=== PATIENT | male | born 1945 | race Caucasian/White ===

== ENCOUNTER → 2016-07-31 | Outpatient (CLI) | payer OTHER, MEDICARE ==
[~2016-07-31] MED LIST: GADOBUTROL 10 ML VIAL IVP ONE
== END ==
LOC: FIMAGING 17:05
PROVIDERS: ATTEND Internal Medicine
DX: R41.82 Altered mental status, unspecified (principal); R47.02 Dysphasia; I48.91 Unspecified atrial fibrillation
CPT/HCPCS: 70553; A9585

== ENCOUNTER → 2016-08-01 | Outpatient (CLI) | payer OTHER, MEDICARE | LOC: BMCIMAGING 15:46 | PROVIDERS: ATTEND Internal Medicine Cardiovascular Disease | DX: I65.23 Occlusion and stenosis of bilateral carotid arteries (principal); Z86.73 Personal history of transient ischemic attack (TIA), and cerebral infarction without residual deficits ==

== ENCOUNTER 2016-08-02 06:31 | Day surgery (SDC) | payer OTHER, MEDICARE ==
[2016-08-02] MEDS ORDERED: BENZOCAINE UNIT DOSE SPRAY HURRICAINE MM ONE (06:38)
[2016-08-02] MEDS ORDERED: MIDAZOLAM 2 MG/2 ML VIAL IVP ONE (06:38)
[2016-08-02] MEDS ORDERED: NS 1,000 ML IV ONE (06:38)
[2016-08-02] MEDS ORDERED: fentaNYL 100 MCG/2 ML INJ IVP ONE (06:38)
[2016-08-02] MEDS ORDERED: ATROPINE SULFATE 1 MG/10 ML SYR ONE (07:19)
[2016-08-02] MEDS ORDERED: PROPOFOL 200 MG/20 ML VIAL ONE ×2 (08:18→08:38)
[2016-08-02] MEDS ORDERED: LIDOCAINE 2% 100 MG/5 ML SYR ONE (08:18)
--- NOTE | 2016-08-02 10:19 | ECHO ---
[id number] + + [address] : : [facility] [address] : : [phone] + + Adult Echocardiographic Report + + :Name: AYESHA ROBERT Study Date: 08/02/2016 08:13 AM : : Hospital Admission Number: [id number] : :: 1945 Gender: Male : :Age: 70 yrs Race: WH : + + Left Ventricle Left ventricular systolic function is normal. Right Ventricle The right ventricular systolic function is normal. Atria No left atrial mass or thrombus visualized. The right atrium is moderately dilated. The interatrial septum is intact with no evidence for an atrial septal defect. Injection of contrast documented no interatrial shunt. Mitral Valve The mitral valve is normal in structure and function. There is no evidence of mitral valve prolapse. There is trace mitral regurgitation. Tricuspid Valve The tricuspid valve is normal in structure and function. There is trace tricuspid regurgitation. Aortic Valve There is no aortic insufficiency. The prosthetic aortic valve is well- seated. The prosthetic aortic valve appears to open well. There is no thrombus on the prosthetic aortic valve. There are no vegetations on this prosthetic aortic valve. Pulmonic Valve The pulmonic valve is normal in structure and function. There is no pulmonic valvular regurgitation. Great Vessels Mild atherosclerotic plaque(s) in the descending aorta. Pericardium/Pleural The pericardium appears normal. Conclusion Left ventricular systolic function is normal. No left atrial mass or thrombus visualized. Injection of contrast documented no interatrial shunt. There is trace mitral regurgitation. There is trace tricuspid regurgitation. The prosthetic aortic valve is well-seated. The prosthetic aortic valve appears to open well. There is no thrombus on the prosthetic aortic valve. There are no vegetations on this prosthetic aortic valve. Final Reading Physician: Ab Schulte electronically signed on 08/02/2016 10:18 AM Ordering Physician: Ab Schulte
--- NOTE | 2016-08-02 10:51 | CPR ---
[f rep st] NONINVASIVE CARDIAC PROCEDURE REPORT DATE OF PROCEDURE: 08/02/2016 PROCEDURE PERFORMED: Transesophageal echocardiogram. 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 PROCEDURE: After informed consent was obtained, the patient was brought to the [facility]. With the assi stance of Anesthesia, patient was sedated with propofol. Once appropriate level of sedation was ach ieved, KYLIE probe was passed via a bite block without complication. KYLIE probe was used to take image s of all cardiac structures. The porcine aortic valve was well seated with no evidence of thrombus or vegetation. There was no evidence of thrombus within the left atrium. Left atrial appendage was not visualized, most likely oversewn during surgery. We will review his surgical report. Please see complete echo report for full details. There is no cardiac source of embolic event for his recent frontal lobe CVA. CONCLUSION: 1. Normal bioprosthetic valve function. 2. Normal left ventricular systolic function. No valvular source of embolic phenomenon. PLAN: 1. Patient will be discharged home in approximately 1 hour. 2. Continue outpatient medications including his anticoagulation. 3. We will contact his primary care physician, Dr. Teague, as well as Dr. Hillman, neurologist who is s eeing him this afternoon. /[id number]/MODL
== END 2016-08-02 11:40 | disposition home or self-care (01) ==
LOC: FCATH 06:31
PROVIDERS: ATTEND Internal Medicine Cardiovascular Disease
PROC: B246ZZ4 Ultrasonography of Right and Left Heart, Transesophageal (ICD-10-PCS; principal; 2016-08-02)
DX: I48.0 Paroxysmal atrial fibrillation (principal); Z95.2 Presence of prosthetic heart valve; I25.10 Atherosclerotic heart disease of native coronary artery without angina pectoris; G47.33 Obstructive sleep apnea (adult) (pediatric); Z86.73 Personal history of transient ischemic attack (TIA), and cerebral infarction without residual deficits
CPT/HCPCS: J0461; J2001; J2704

== ENCOUNTER 2016-08-02 15:26 | Inpatient (IN) | payer OTHER, MEDICARE ==
[2016-08-02 16:05] LABS: % IMMATURE GRANULYOCYTES 0.4 % (0.0-1.1); ABSOLUTE IMMATURE GRANULOCYTES 0.03 10^3/uL (0.00-0.10); ADD DIFF? NO; ADD MORPH? NO; ADD SCAN? NO; ATYPICAL LYMPHOCYTE FLAG 10 (0-99); FRAGMENT RBC FLAG 0 (0-99); LEFT SHIFT FLG 20 (0-99); LIPEMIA HEMOLYSIS FLAG 90 (0-99); MEAN CELL HEMOGLOBIN 33.4 pg (27.9-34.1); MEAN CELL HEMOGLOBIN CONCENTR. 34.1 g/dL (32.4-36.7); MEAN CELL VOLUME 97.9 fL (81.5-99.8); MEAN PLATELET VOLUME 10.7 fL (8.7-11.7); PLATELET CLUMPS FLAG 0 (0-99); PLATELET COUNT 120 10^3/uL (150-400); RED BLOOD CELL COUNT 4.19 10^6/uL (4.40-6.38); RED CELL DISTRIBUTION WIDTH 13.2 % (11.5-15.2)
--- NOTE | 2016-08-02 16:05 | EDPHY ---
HPI/HX/ROS/PE/MDM Narrative: CHIEF COMPLAINT: Behavioral changes HPI: The patient is a 70 y/o male arriving with his at the referral of his neurologist for changes in his behavior onset one month ago and worsening over the last week. He has has an extensive cardiac history and previous TIA. His says about one month ago he began to "have identity issues" and developed difficulty continuing a train of thought or telling a story. She describes an accompanying change in his personality and increased paranoia. She says this worsened acutely over the last week so his neurologist, Dr. Hillman, ordered an MRI on 07/31/16, 2 days ago. The MRI showed a large subacute or old right frontal infarct that is likely related to his current behavior. He had a KYLIE this morning that was unremarkable. Dr. Hillman referred him to the ED for admission and stabilization of his behavior. The patient and his confirm this plan. REVIEW OF SYSTEMS: Aside from elements discussed in the HPI, a comprehensive 10-point review of systems was reviewed and is negative. PMH: Coronary and cerebral artery disease, dilated cardiomyopathy, atrial fibrillation, dyslipidemia, anxiety, TIA in 2002, reactive airways disease. PSH: Ablation x3, bioprosthetic aortic valve replacement Prior medical records reviewed including cardiac admission 09/28/15, brain MRI , KYLIE 08/02/16. SOCIAL HISTORY: at bedside. PCP: Dr. Teague. Neurologist: Dr. Hillman. PHYSICAL EXAM: General:Patient is alert, in no acute distress. ENT:Eyes are normal to inspection. ENT inspection normal. Neck: Normal inspection. Full range of motion. Respiratory:No respiratory distress. Breath sounds normal bilaterally. Cardiovascular: Regular rate and rhythm. Strong peripheral pulses. Normal cap refill. Abdomen:The abdomen is nontender to palpation. There are no peritoneal signs. Back: Normal to inspection. No tenderness to palpation. Skin: Normal color. No rash. Warm and dry. Extremities: Normal appearance. Full range of motion. Neuro: Oriented x3. Normal motor function. Normal sensory function. ED Course: IV established. Labs drawn including CBC, CHEM, troponin, PTPTT, LFT. Urine tox ordered. Patient placed on cardiac cath lab radiology technologist. The 12 lead EKG was interpreted by myself. Sinus rhythm. See hard copy and/or "tracemaster" electronic copy for interpretation. 1640: Troponin elevated at 0.078. 1652: Spoke with Dr. Luque, hospitalist. He accepts admission. MDM: This patient presents with altered mental status and paranoid behavior in the setting of recent frontal lobe CVA, which seems like a reasonable cause of this type of behavior. On exam, patient clearly has difficulty having a logical conversation and I do not think he actually has capacity to make his own medical decisions at this point. The patient is comfortable with admission to the hospital for further observation, medical stabilization and workup. The etiology of his mildly elevated troponin is unclear, but given negative ECG, lack of chest pain and negative KYLIE this morning, I see no signs of ACS. - Data Points Laboratory Results: Laboratory Results 08/02/16 15:57 08/02/16 15:57 08/02/16 08/02/16 08/02/16 16:35 15:57 15:57 WBC RBC Hgb Hct MCV MCH MCHC RDW Plt Count MPV Neut % (Auto) Lymph % (Auto) [place] % (Auto) Eos % (Auto) Baso % (Auto) Nucleat RBC Rel Count Absolute Neuts (auto) Absolute Lymphs (auto) Absolute Monos (auto) Absolute Eos (auto) Absolute Basos (auto) Absolute Nucleated RBC Immature Gran % Immature Gran # PT 17.0 SEC H SEC (12.0-15.0) INR 1.39 H (0.83-1.16) APTT 38.9 SEC H SEC (23.0-38.0) Sodium 136 mEq/L mEq/L (134-144) Potassium 4.5 mEq/L mEq/L (3.5-5.2) Chloride 103 mEq/L mEq/L (97-110) Carbon Dioxide 23 mEq/l D mEq/l (22-31) Anion Gap 10 mEq/L mEq/L (8-16) BUN 20 mg/dL mg/dL (7-23) Creatinine 0.9 mg/dL mg/dL (0.7-1.3) Estimated GFR > 60 Glucose 97 mg/dL mg/dL (70-100) Calcium 9.6 mg/dL mg/dL (8.5-10.4) Total Bilirubin 0.6 mg/dL mg/dL (0.1-1.4) Conjugated Bilirubin 0.3 mg/dL mg/dL (0.0-0.5) Unconjugated Bilirubin 0.3 mg/dL mg/dL (0.0-1.1) AST 52 IU/L IU/L (17-59) ALT 50 IU/L IU/L (21-72) Alkaline Phosphatase 71 IU/L IU/L (38-126) Troponin I 0.078 ng/mL H ng/mL (0-0.034) Total Protein 7.3 g/dL g/dL (6.3-8.2) Albumin 4.4 g/dL g/dL (3.5-5.0) Urine Opiates Screen NEGATIVE (NEGATIVE) Urine Barbiturates NEGATIVE (NEGATIVE) Ur Phencyclidine Scrn NEGATIVE (NEGATIVE) Ur Amphetamine Screen NEGATIVE (NEGATIVE) U Benzodiazepines Scrn NEGATIVE (NEGATIVE) Urine Cocaine Screen NEGATIVE (NEGATIVE) U Marijuana (THC) Screen NEGATIVE (NEGATIVE) 08/02/16 15:57 WBC 6.74 10^3/uL 10^3/uL (3.80-9.50) RBC 4.19 10^6/uL L 10^6/uL (4.40-6.38) Hgb 14.0 g/dL g/dL (13.7-17.5) Hct 41.0 % % (40.0-51.0) MCV 97.9 fL fL (81.5-99.8) MCH 33.4 pg pg (27.9-34.1) MCHC 34.1 g/dL g/dL (32.4-36.7) RDW 13.2 % % (11.5-15.2) Plt Count 120 10^3/uL L 10^3/uL (150-400) MPV 10.7 fL fL (8.7-11.7) Neut % (Auto) 59.7 % % (39.3-74.2) Lymph % (Auto) 22.4 % % (15.0-45.0) [place] % (Auto) 12.2 % % (4.5-13.0) Eos % (Auto) 4.9 % % (0.6-7.6) Baso % (Auto) 0.4 % % (0.3-1.7) Nucleat RBC Rel Count 0.0 % % (0.0-0.2) Absolute Neuts (auto) 4.02 10^3/uL 10^3/uL (1.70-6.50) Absolute Lymphs (auto) 1.51 10^3/uL 10^3/uL (1.00-3.00) Absolute Monos (auto) 0.82 10^3/uL H 10^3/uL (0.30-0.80) Absolute Eos (auto) 0.33 10^3/uL 10^3/uL (0.03-0.40) Absolute Basos (auto) 0.03 10^3/uL 10^3/uL (0.02-0.10) Absolute Nucleated RBC 0.00 10^3/uL 10^3/uL (0-0.01) Immature Gran % 0.4 % % (0.0-1.1) Immature Gran # 0.03 10^3/uL 10^3/uL (0.00-0.10) PT INR APTT Sodium Potassium Chloride Carbon Dioxide Anion Gap BUN Creatinine Estimated GFR Glucose Calcium Total Bilirubin Conjugated Bilirubin Unconjugated Bilirubin AST ALT Alkaline Phosphatase Troponin I Total Protein Albumin Urine Opiates Screen Urine Barbiturates Ur Phencyclidine Scrn Ur Amphetamine Screen U Benzodiazepines Scrn Urine Cocaine Screen U Marijuana (THC) Screen General Time Seen by Provider: 08/02/16 15:29 Initial Vital Signs: Initial Vital Signs Temperature (C) 36.4 C 08/02/16 15:30 Heart Rate 67 08/02/16 15:30 Respiratory Rate 17 08/02/16 15:30 Blood Pressure 122/84 H 08/02/16 15:30 O2 Sat (%) 96 08/02/16 15:30 O2 Delivery Mode Room Air Allergies/Adverse Reactions: No Known Allergies Allergy (Verified 08/02/16 15:28) Home Medications: Medication Instructions Recorded Albuterol [Proventil Inhaler HFA 1 puffs IH DAILY PRN 08/02/16 (*)] Atorvastatin Calcium [Lipitor 20 20 mg PO HS 08/02/16 mg (*)] Dabigatran Etexilate Mesyl 150 mg PO BID 08/02/16 [Pradaxa 150 MG (*)] Herbals/Supplements -Info Only 1 ea PO DAILY 08/02/16 Metoprolol Tartrate [Lopressor 25 12.5 mg PO BID 08/02/16 mg (*)] Multivitamins [Multivitamin (*)] 1 each PO DAILY 08/02/16 [place]-3 Fatty Acids [Fish Oil 1000 2,000 mg PO DAILY 08/02/16 mg (*)] PARoxetine HCL [Paxil 10mg (*)] 10 mg PO HS 08/02/16 Departure - Departure Disposition: [facility] Inpatient Acute Clinical Impression: Change in behavior, Elevated troponin Condition: Fair Report Scribed for: Luis Carrillo Report Scribed by: Belia Santiago Date of Report: 08/02/16 Time of Report: 15:57 Physician Review and Approval Statement: Portions of this note were transcribed by an ED scribe. I personally performed the history, physical exam, and medical decision making; and confirm the accuracy of the information in the transcribed note.
--- NOTE | 2016-08-02 16:06 | CPEKG ---
Heart Rate: 62 RR Interval: 968 P-R Interval: 180 QRSD Interval: 90 QT Interval: 400 QTC Interval: 407 P [place]: 71 QRS [place]: -62 T Wave [place]: 218 EKG Severity - ABNORMAL ECG - EKG Impression: SINUS ARRHYTHMIA, RATE 51-70 EKG Impression: LEFT ANTERIOR FASCICULAR BLOCK EKG Impression: NONSPECIFIC T ABNORMALITIES, LATERAL LEADS EKG Impression: LATERAL ST/T WAVE CHANGES ARE NEW IN COMPARISON TO PRIOR ECG FROM 28-SEP-15 Electronically Signed By: Joseph Cano 03-Aug-2016 18:05:15
[2016-08-02 16:17] LABS: INR 1.39 (0.83-1.16)
[2016-08-02 16:18] LABS: APTT 38.9 SEC (23.0-38.0)
[2016-08-02 16:28] LABS: ALANINE AMINOTRANSFERASE 50 IU/L (21-72); ALBUMIN 4.4 g/dL (3.5-5.0); ALKALINE PHOSPHATASE 71 IU/L (38-126); ANION GAP 10 mEq/L (8-16); ASPARTATE AMINOTRANSFERASE 52 IU/L (17-59); BILIRUBIN,TOTAL 0.6 mg/dL (0.1-1.4); BILIRUBIN-CONJUGATED 0.3 mg/dL (0.0-0.5); BILIRUBIN-UNCONJUGATED 0.3 mg/dL (0.0-1.1); CALCIUM 9.6 mg/dL (8.5-10.4); CARBON DIOXIDE 23 mEq/l (22-31); CHLORIDE 103 mEq/L (97-110); CREATININE 0.9 mg/dL (0.7-1.3); GLOMERULAR FILTRATION RATE > 60; GLUCOSE 97 mg/dL (70-100); POTASSIUM 4.5 mEq/L (3.5-5.2); SODIUM 136 mEq/L (134-144); TOTAL PROTEIN 7.3 g/dL (6.3-8.2)
[2016-08-02 16:37] LABS: TROPONIN I 0.078 ng/mL (0-0.034)
[2016-08-02] MEDS ORDERED: ZOLPIDEM TARTRATE 5 MG TAB PO PRN (18:58)
[2016-08-02] MEDS ORDERED: ACETAMINOPHEN 325 MG TAB PO PRN (18:58)
[2016-08-02] MEDS ORDERED: ONDANSETRON 4 MG/2 ML VIAL IVP PRN (18:58)
[2016-08-02] MEDS ORDERED: ALBUTEROL 60 PUFFS/8 GM MDI IH PRN (19:03)
--- NOTE | 2016-08-02 20:07 | PDGENHP ---
History and Physical History and Physical: HISTORY AND PHYSICAL CC: Sent to the hospital from Dr. Hernandez office with change in personality, paranoia, and what appears to be recent frontal lobe stroke. HISTORY: This patient with a somewhat complicated medical history was apparently doing well until around a month ago when his started noticing some personality changes. She describes some paranoia, some difficulty in conversation where he would talk in a circular fashion and never get to the topic. She was finding it increasingly difficult to manage at home and she did not feel he was safe at home. This eventually led to the patient being evaluated by Dr. Teague who ordered an MRI of the brain. This was done on July 31 2 days ago and showed a right frontal lobe infarct that was subacute to old. The patient was assessed by Dr. Hillman. He then was referred to Dr. Schulte who did a trans esophageal echocardiogram earlier today with no evidence of thrombus and no evidence of malfunction or malposition of his bovine aortic valve. He was then referred by Dr. Hillman to the hospital for further evaluation and management. I am visiting with the patient in the emergency room. As I asked the patient why he was visiting his doctors or why he was transferred here, he does tell me that he is not entirely comfortable discussing everything with me, and he talked at great length about concerns he has about constrictions placed on him regarding discussions with former colleagues in work. He describes the situation as though there might be some type of legal difficulties and difficulty ago she agents. However he speaks of all this quite vaguely with no details at all and seems to be searching hard for ways to only give me a certain level of information. When I asked him if he felt like all of this was normal for the kind of situation he was in there he does not answer me directly. At 1 point in the conversation he did mention that in a very vague way that other people seemed concerned about his comments in these discussions. When I asked what his reactions to these issues were and whether he thought his reactions were normal or appropriate he did not answer that question but diverted conversation. Each time I had tried to stand him back to telling me about symptoms he voided talking about any symptoms. When I asked him why Dr. Teague will ordered an MRI he tells me that she wanted to compare it with a previous MRI that he had some years back when there was a TIA episode. When I asked him what symptoms he was having now that would make Dr. Teague when to make that comparison he again avoided that discussion and went back to talking about his difficulties with his former work colleagues. Finally after several efforts to get him to talk about any symptoms he has been having he did make a vague reference to some possible paranoia. When I asked him about any physical symptoms he denied having any physical symptoms including headache or neurologic symptoms. He denies any symptoms of heart failure or arrhythmia as well. ROS: A comprehensive 10 system review revealed no other significant findings PAST MEDICAL HISTORY: Aortic insufficiency leading to a bovine aortic valve replacement in 2014 Atrial fibrillation, rate controlled and on oral anticoagulant TIA Clean coronary arteries noted on angiography before his heart valve Dilated cardiomyopathy Hyperlipidemia Anxiety disorder Reactive airway disease FAMILY MEDICAL HISTORY: No strokes SOCIAL HISTORY: and lives with his who is here with him Retired No tobacco no significant alcohol MEDICATIONS: The patients list has been reconciled by our clinical pharmacist in the EMR. I have reviewed the list and ordered appropriate medicines. Of note he is on anticoagulation with oral Pradaxa, but is not on a platelet inhibitor. PHYSICAL EXAMINATION: Vital Signs: Normal blood pressure pulse respirations and temperature is Category Planner: sinus rhythm on monitor in the ER by my review Examination: General: alert, oriented, good mentation, relaxed; Neurologic: he appears a very intelligent man; I refer the reader to my discussion about my conversation with him in the history above in this note. There is clearly a degree of suspicion and paranoia any significant unwillingness or inability to stick to a topic of conversation when I trying to direct him. This is precisely what his is describing at home as well. Otherwise there is normal speech/language, normal financial director, no focal weakness, no tremor Skin: warm, dry, good color, no rash HEENT: normal Neck: no mass or jvd Resps: relaxed Lungs: clear breath sounds Heart: regular, no murmur Abdomen: soft, nondistended, nontender, +BS, no mass Upper Extremities: normal Lower Extremities: no edema, warm No Bleeding or bruising IV site: looks normal LABORATORY DATA: Urine drug screen all negative Metabolic panel normal Platelets slightly low on CBC otherwise unremarkable Indeterminate troponin 0.07 TRANSESOPHAGEAL ECHOCARDIOGRAM DONE EARLIER today, I reviewed Dr. salamanca also report: There is no evidence of intracardiac thrombus, under S eating or malfunction of his bovine heart valve, and he was in RADIOLOGY STUDIES: I reviewed the images from an outpatient MRI done earlier this week 2 days ago. This is a noncontrast study of the brain. My impressions the images; there is a right frontal lobe ischemic in infarct lesion that appears probably subacute. No evidence of trauma no evidence of mass 12 LEAD EKG DONE IN THE ER TODAY, my interpretation of the tracing in comparison to a 2015 EKG at time of heart surgery: Sinus rhythm. There is some diffuse Borderline ST changes that are identical to what was seen on the 2015 EKG. In the 2015 tracing there are some T-wave inversions that have flattened on the current EKG. There is nothing that appears as an acute ischemic abnormality ASSESSMENT: -SUBACUTE CHANGES OF PERSONALITY AND MENTATION PRIMARILY MANIFESTING PARANOIA AND DIFFICULTY IN CONVERSATION CHARACTERIZED UNABLE TO OR UNWILLING TO ENGAGE IN A SPECIFIC TOPIC OF CONVERSATION -PROBABLE SUBACUTE STROKE IN THE RIGHT FRONTAL LOBE BASED ON MRI SCANNING -INDETERMINATE TROPONIN OF UNCERTAIN CAUSE OR SIGNIFICANCE WITH NO CURRENT CARDIAC SYMPTOMS AND NORMAL KYLIE TODAY -HISTORY OF ATRIAL FIBRILLATION ON CHRONIC ORAL ANTICOAGULATION, CURRENTLY SINUS BUT RATE CONTROLLED ON ORAL MEDICINES -PRIOR HISTORY OF TIA -HISTORY OF BOVINE AORTIC VALVE REPLACEMENT At this point there is no definite way to confirm this but it seems prudent to proceed with the belief that his acute symptoms over the past 30 days are due to this stroke lesion in the right frontal lobe. He does not have any other history of psychosis previously. This is problematic in that therapeutic options are probably somewhat limited and he is a very intelligent man and not really directable, or having insight into his acute symptoms, willing to engage in conversation about his symptoms. Certainly we should assess him from the standpoint of stroke prevention, however he is already on anticoagulant and statin, has good blood pressure, is in a sinus rhythm, and there are not other obvious avenues to make big changes from prevention standpoint now. He does not appear to be taking an aspirin which will need to confirm but whether assess low-dose aspirin should be added should be part of our discussion with Neurology and Cardiology. At the time of his presentation is symptoms have been present for a month and so there is no reason for discussion of thrombolysis. PLANS: -admission to hospital for reasons of min maintaining patient's safety -neurology consultation -speech language pathology consultation for cognitive evaluation -may need to consider psychiatric evaluation -Continue his current medications -consider addition of low-dose aspirin I have reviewed the patient's case in detail with Dr. Tod Shankar and Luis Carrillo I have reviewed the patient's past medical records as part of this assessment, including his outside MRI scan from 2 days ago, the outside transesophageal echocardiogram from earlier today, previous EKGs and other records from his hospital stay in 2015
[2016-08-02 20:09] VITALS: RESP 20
[2016-08-02] MEDS: DABIGATRAN ETEXILATE MESYL 150 MG CAP PO SCH (20:25)
[2016-08-02] MEDS: METOPROLOL TARTRATE 25 MG TAB PO SCH (20:25)
[2016-08-02] MEDS ORDERED: PARoxetine HCL 10 MG TAB PO SCH (21:00)
[2016-08-02] MEDS ORDERED: ATORVASTATIN CALCIUM 20 MG TAB PO SCH (21:00)
[2016-08-03 04:38] LABS: % IMMATURE GRANULYOCYTES 0.4 % (0.0-1.1); ABSOLUTE IMMATURE GRANULOCYTES 0.03 10^3/uL (0.00-0.10); ADD DIFF? NO; ADD MORPH? NO; ADD SCAN? NO; ATYPICAL LYMPHOCYTE FLAG 10 (0-99); FRAGMENT RBC FLAG 0 (0-99); HEMATOCRIT 41.1 % (40.0-51.0); HEMOGLOBIN 14.2 g/dL (13.7-17.5); LEFT SHIFT FLG 10 (0-99); LIPEMIA HEMOLYSIS FLAG 90 (0-99); MEAN CELL HEMOGLOBIN 33.1 pg (27.9-34.1); MEAN CELL HEMOGLOBIN CONCENTR. 34.5 g/dL (32.4-36.7); MEAN CELL VOLUME 95.8 fL (81.5-99.8); MEAN PLATELET VOLUME 10.9 fL (8.7-11.7); PLATELET CLUMPS FLAG 0 (0-99); PLATELET COUNT 121 10^3/uL (150-400); RED BLOOD CELL COUNT 4.29 10^6/uL (4.40-6.38)
[2016-08-03 04:52] LABS: ANION GAP 9 mEq/L (8-16); CALCIUM 9.3 mg/dL (8.5-10.4); CARBON DIOXIDE 26 mEq/l (22-31); CHLORIDE 104 mEq/L (97-110); CHOLESTEROL 118 mg/dL (140-220); CHOLESTEROL/HDL RATIO 2.07 RATIO (1.00-4.97); CREATININE 0.9 mg/dL (0.7-1.3); GLOMERULAR FILTRATION RATE > 60; GLUCOSE 94 mg/dL (70-100); HIGH DENSITY LIPOPROTEIN 57 mg/dL (40-65); LDL/HDL RATIO 0.84 RATIO (1.00-3.64); LOW DENSITY LIPOPROTEIN 48 mg/dL (80-100); NON-HIGH DENSITY LIPOPROTEIN 61 mg/dL (90-129); POTASSIUM 4.8 mEq/L (3.5-5.2); SODIUM 139 mEq/L (134-144); TRIGLYCERIDE 69 mg/dL (40-150); VERY LOW DENSITY LIPOPROTEINS 13 mg/dL (8-25)
[2016-08-03 05:00] LABS: TROPONIN I 0.063 ng/mL (0-0.034)
[2016-08-03] MEDS ORDERED: OMEGA-3 FATTY ACIDS 1,000 MG CAP PO SCH (09:00)
[2016-08-03] MEDS ORDERED: MULTIVITAMINS 1 EACH TAB PO SCH (09:00)
[2016-08-03] MEDS: METOPROLOL TARTRATE 25 MG TAB PO SCH (11:25)
[2016-08-03] MEDS: DABIGATRAN ETEXILATE MESYL 150 MG CAP PO SCH (11:30)
--- NOTE | 2016-08-03 15:10 | GCON ---
[f rep st] CONSULTATION NEUROLOGY CONSULTATION DATE OF CONSULTATION: 08/03/2016 REFERRING PHYSICIAN: Joseph Marlow MD BILLING INFORMATION: 70 minutes total floor time today and reviewing all previous hospital records, brain MRI, transesophageal echocardiogram, carotid Doppler study, ECG, previous operative report from Dr. Beatty, direct counseling with the patient and his daughter, along with coordination of care with primary and consulting teams. CHIEF COMPLAINT: Stroke. HISTORY OF PRESENT ILLNESS: The patient is a very pleasant 70-year-old gentleman who came to medical attention more recently because about a month ago , his started noticing personality changes, specifically, speaking in a circular fashion and difficulty in conversation along with paranoia, according to the H and P. She found it difficult in conversation with him and brought him to Dr. Teague, his primary care physician, who got an MRI brain. This was done July 31, just 3 days ago, which showed a right frontal subacute infarct. He was then immediately referred to his outpatient neurologist, Dr. Vanesa Hillman , at [facility]. He was simultaneously evaluated by his water main installer helper, Dr. Schulte, who did a KYLIE which showed no intracardiac thrombus. He does have a history of atrial fibrillation and bioprosthetic valve replacement about a year ago. He is on oral anticoagulation for this. The KYLIE showed no valvular vegetations, etc. Dr. Hillman then referred him to the emergency department for further evaluation. Prior to coming in, he did have the KYLIE as mentioned, he had a carotid Doppler which showed no flow-limiting stenosis in the carotid system. ECG done on 08/02/2016 shows sinus arrhythmia, left anterior fascicular block. MRI, as mentioned above, shows subacute old infarct in the right frontal lobe without mass effect or hemorrhage. I reviewed these images. He reports no motor or sensory deficits. No language deficits. The patient had been continuously on Pradaxa 150 mg b.i.d. for the last 2 years. Prior to that, for the last 13 years, he thinks he was on warfarin. He has been on anticoagulation for around 15 years and was diagnosed with atrial fibrillation around 20 years ago. REVIEW OF SYSTEMS: 10-point review of systems was done, only pertinent to HPI. PAST MEDICAL HISTORY: Atrial fibrillation, aortic valve replacement, previous TIA. FAMILY HISTORY: No history of heritable neurologic disease. 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 No significant alcohol use. MEDICATIONS: Pradaxa 150 b.i.d. Otherwise, please see the full EHR list. PHYSICAL EXAMINATION: VITAL SIGNS: Blood pressure 137/86, heart rate 68 and regular, temperature 36.7 Celsius, O2 sats 98%. GENERAL: No acute distress. Very pleasant man. NEUROLOGIC: Higher mental function: He names 5/5, repeats 5/5, and follows commands 5/5; however, his spontaneous conversational speech is circular and tangential, and he frequently is unable to complete his thoughts. Essentially, he has trouble organizing his thoughts, suggestive of executive dysfunction. Cranial nerve exam was normal 2 through 7, 11, and 12. Motor exam: He has normal strength, tone, and reflexes. Sensory: Normal to light touch in all 4 extremities. Coordination: He has normal accuracy in spazec-afaf-keyabf and kwfq-qc-lbre bilaterally; however, with finger-nose- finger on the left hand, there was a very mild tremor noted in the left upper extremity. Otherwise, exam as above. IMPRESSION/PLAN: 1. Stroke. 2. History of atrial fibrillation, status post ablations. 3. Status post atrial aortic valve replacement. 4. Oral anticoagulation. The patient appears to have had a subacute right frontal infarct causing executive dysfunction a few weeks ago despite being on Pradaxa 150 mg b.i.d. Therefore, we would consider this a failure of this specific oral anticoagulant agent. I have left a message with his primary water main installer helper, Dr. Ab Schulte, to discuss switching him to a different oral anticoagulant. I have also discussed this with Dr. Marlow, and we will touch base as a team with Dr. Schulte to review which specific agent he would like in terms of a new oral anticoagulant. Beyond that, in terms of his neuropsychiatric manifestations of the right frontal infarct, Psychiatry has been consulted to make recommendations on medications. I think a speech-language pathology consult would be helpful for cognitive therapy. He could do this as an outpatient if he discharges home with his . No further recommendations now. Plan discussed in detail with Dr. Marlow and patient and his daughter. Thank you for this consult. ADDENDUM: His daughter let me know that the patient is purposefully being vague because he "doesn't want to reveal too much information" to this hospital team. He told his daughter he was doing this because he was "instructed to". This suggests underlying paranoia which may causing him to feign behavior to appear like executive dysfunction. Not entirely clear. In addition, he may have had months of cognitive and memory changes with a sudden decline 4-5 weeks ago. This may suggest underlying dementia with the stroke causing an sudden decline. This can be considered and addressed by his outpatient neurologist, Dr. Hillman. /[id number]/MODL MTDD
[2016-08-03 16:11] VITALS: BP 118/81; PULSE 63; TEMP 98; O2SAT 94
[2016-08-03] MEDS ORDERED: WARFARIN SODIUM 5 MG TAB PO ONE (17:43)
--- NOTE | 2016-08-03 17:51 | PDDCSUM ---
Discharge Summary Discharge Summary: DISCHARGE SUMMARY FOLLOW-UP ITEMS: Follow-up PT and INR on 08/07 DATE OF ADMISSION: 08/02/2016 DATE OF DISCHARGE: 08/03/2016 DISCHARGE DIAGNOSES: 1. Subacute right frontal CVA 2. Acute on chronic encephalopathy secondary to CVA 3. Paroxysmal atrial fibrillation 4. Bovine aortic valve replacement CONSULTATIONS: Neurology, psychiatry PROCEDURES / IMAGING: None CHIEF COMPLAINT: Cognitive impairment SUBJECTIVE: Patient is feeling well at time of discharge, he has been conversant with our psychiatrist, he is expressing that he will adhere to oral medications PHYSICAL EXAM ON DISCHARGE: Systolic blood pressure is 130, heart rate 70, afebrile overnight, satting well on room air, alert awake oriented x3, concentration is 7/7, cranial nerves 2-12 are intact and tested, motor strength 5/5 bilateral upper and lower extremities , sensation intact bilaterally, the patient is suspicious with tangential thinking, circular logic, visible paranoia, patient has limited insight into his deficit but is aware that cognitively something is amiss LABS ON DISCHARGE: LDL 48, creatinine 0.9, white blood cell count 7700, hemoglobin 14.2, tox screen negative HOSPITAL COURSE BY PROBLEM: 1. Right frontal subacute CVA. The patient presents with MRI findings of a right frontal infarct which is most likely subacute and likely occurred 4-6 weeks ago. The resultant deficits include increased paranoia, anxiety, disturbed thinking, poor insight into deficits. The patient underwent a transesophageal echocardiogram prior to this presentation which did not demonstrate any active clot. After discussion with Dr. Schulte and Dr. Cabezas, we have agreed to adjust patient's systemic anticoagulation from Pradaxa to Coumadin for future CVA prevention from atrial fibrillation. We have also recommended AXLE TURNER/cognitive therapy in the outpatient setting. Home care services were offered to the patient by our case preparer and liner, but the patient and his family declined. The patient should follow up closely with his outpatient neurologist, Dr. Hillman, early this week. 2. Acute on chronic encephalopathy secondary to CVA. Evidenced by global brain dysfunction characterized as increased paranoia, anxiety, disrupted thinking, circular logic, more tangential speech than his baseline, overall poor insight, all of which are an acute change from his baseline and have occurred over the past several weeks. It is suspected that he was developing dementia prior to the onset of his CVA and prior to his acute worsening, as expressed by his family members. The patient had begun to demonstrate poor short-term memory prior to his CVA but had not sought medical attention at that time. Since his CVA, the patient has experienced all the above changes which have resulted in psychology care in the outpatient setting and what appears to be treatment with Paxil for anxiety. Patient was seen in consultation by our psychiatrist, Dr. Cherry, and he recommended low-dose Risperdal be added twice daily to aid in patient's mood symptoms. The Risperdal can be up titrated in the outpatient setting at the discretion of Dr. Hillman and if further psychiatry expertise is required, Dr. Hillman may contact Dr. Jim Cherry for further guidance. 3. Paroxysmal atrial fibrillation. Status post several lesions, continued on metoprolol, adjusted from Pradaxa to Coumadin given his new CVA. He will have a repeat INR in the outpatient setting. 4. Bovine aortic valve replacement. This in of itself does not require systemic anticoagulation, so consequently the patient does not require bridging at this time. DISCHARGE MEDICATIONS: Please see official discharge medication reconciliation sheet in chart , Coumadin 5 mg daily, Risperdal 0.5 mg twice daily. DISCHARGE INSTRUCTIONS: Patient should have a follow-up PT and INR on 08/07 and ongoing Coumadin management through Dr. Schulte's office. Should schedule follow-up appoint with Dr. Hillman early next week. He should schedule outpatient cognitive and AXLE TURNER therapy. TIME SPENT: Greater than 30 minutes were spent on direct patient care, as well as discharge planning and preparation. The patient was discharged prior to the previously anticipated 2 midnights secondary to highly efficient expeditious care provided by the patient's hospitalist team, psychiatry provider, neurologist, tablet making machine operator helper, nursing staff. Patient's family requesting discharge at this time and given that no further workup is required and it is anticipated that the patient will have more difficulty in the inpatient setting rather than at home, it is appropriate to discharge him at this time.
--- NOTE | 2016-08-03 21:45 | BCON ---
[f rep st] BEHAVIORAL HEALTH CONSULTATION DATE OF CONSULTATION: 08/03/2016 IDENTIFICATION: The patient presents as a 70-year-old, , white male, who was admitted to [facility] on 08/02/2016 via the [facility] emergency room for complaints of emerging mental status changes over a 4-6 week period prior to admission with particular increase in acuity over the week prior to admission. CONSULTATIVE REQUEST: Psychiatry was asked to consult to Mr. Lopez with reference to his persisting mental status changes and include recommendations about possible use of psychoactive medication and dispositional planning. HISTORY OF PRESENT ILLNESS: The patient presents with a significant medical history which includes coronary artery disease, cerebral artery disease, atrial fibrillation, dyslipidemia, aortic valve replacement. Patient apparently had a discrete TIA episode diagnosed in 2002. He was in his usual state of mental status stability when he began to evidence emerging and circumscribed paranoid ideation, circular and tangential thinking, confusional thinking within the past 4 weeks plus. 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 This worsening mental status and acuity prompted calls to his PCP and neurologist. Brain MRI was done on July 31 which evidenced a new finding associated with significant subacute and/or old right frontal infarct which was thought to be etiologically related to mental status changes. The patient's neurologist, Dr. Hillman, referred the patient to [facility] Emergency Room for further assessment and management. HOSPITAL COURSE: In the emergency room, the patient presented as alert and oriented x3. His sensory and motor functions were found to be normal but his thought process illogical. Lab screens were unremarkable including a nonacute EKG, a negative KYLIE done prior to admission, CBC, BMP, urinalysis, and toxic screen. Troponin I showed mild elevation at 0.078. He was seen in followup neurologic consultation earlier today by Dr. Cabezas. Dr. Cabezas found the patient's functions for naming, recall, and commands to be fully intact. However, the circular and tangential thought pattern along with elements of disorganization were also noted. Dr. Cabezas's impression was of executive dysfunction likely related to the recent right frontal CVA noted on the pre-admission MRI. Further mental status findings were identified in the admission physical exam by Dr. Luque on 08/02. Dr. Luque noted elements of suspiciousness, circular and tangential thinking, ideas of reference associated with patient's association to his previous work history. Patient also pointedly avoids answering questions about reasons for his admission or input from physicians post his admission. INTAKE FROM : Patient's was visiting directly and provided the input that patient had had the recent trip to [place] prior to the acute worsening of his mental status. She stated she was certain the trip had been quite stressful for the patient in reassociating with work colleagues and focusing on the project they had come together to discuss. She stated she was aware that his "mind was not working right" before the trip. MENTAL STATUS EXAM: On direct exam, the patient presents as an adult male lying in bed who looks his stated age. He is alert and oriented x3. He evidences mild generalized anxiety but relatively neutral mood. He does relate to me initially in a suspicious and guarded manner. This initial stance diminishes as he becomes more comfortable in the session. He does describe a self observing change in his thought process but questioned whether there are also changes in the environment around him emerging sometime in recent weeks. He described his thinking as "less direct." He also use the descriptors of "distorted and confused" as applying to his thought process; however, he also raised questions whether this was true or if the changes were not better explained by environmental changes around him. His concerns historically about work conversations which he did not feel he could disclose clearly he did reiterate in this session again as he had stated in earlier conversations with his admitting doctor. He did understand there was the MRI finding of a more recent brain injury. He said he thought it was initially associated with the TIA some years ago but was clear in the session with me that they were 2 separate events. His stance with me became, as stated, less defensive as the session proceeded. He appeared to understand my role as a consulting doctor. He understood that I would be recommending adding a medication to the medications he was taking that would help improve the quality of his thinking as his brain injury would be allowed to heal. DIAGNOSTIC IMPRESSION: 1. Organic psychotic reaction - multifactorial: I agree the patient's relatively recent cerebrovascular accident is a contributing factor. History of some longer term cognitive decline has also been noted by patient's community neurologist which would contribute as well as both brain problems make the patient more vulnerable to stress reactive anxiety which clearly did occur on the recent trip to [place] to meet with work colleagues. 2. Rule out Elder-Life Adjustment Disorder: Cannot rule out this as a contributing factor in a man who appears to have some awareness of the effects of aging aside from the acute brain insults noted in the data base. 3. Rule out emerging early phase Dementia Disorder RECOMMENDATIONS: 1. Patient could be placed on a low-dose antipsychotic to help diminish the paranoia and stress reactive disorganization. Recommend Risperdal initially at 0.5 to 1 mg b.i.d. with careful monitoring and upward dosing as indicated and tolerated 2. Agree with the previous suggestion of cognitive remedial therapy as patient is highly intelligent and has retained significant intellectual functional capability. 3. Provide consultation and support to and family in their family management roles. Patient has apparently been seeing a psychologist for complaints of anxiety over a longer period of time. Suggest regular family contacts with this clinician in followup. Thank you for the interesting consultation. Any questions, I can be called at [phone]. /[id number]/MODL MTDD
== END 2016-08-03 18:44 | disposition home or self-care (01) | DRG 65 ==
LOC: F2W 18:48 → OBSVTOIN 18:58
PROVIDERS: ADMIT Internal Medicine; ATTEND Internal Medicine
DX: I63.9 Cerebral infarction, unspecified (principal); F22 Delusional disorders; F41.9 Anxiety disorder, unspecified; R41.89 Other symptoms and signs involving cognitive functions and awareness; R47.89 Other speech disturbances; I42.0 Dilated cardiomyopathy; I48.0 Paroxysmal atrial fibrillation; E78.5 Hyperlipidemia, unspecified; J45.909 Unspecified asthma, uncomplicated; Z79.01 Long term (current) use of anticoagulants; Z95.3 Presence of xenogenic heart valve
CPT/HCPCS: 80305; 92523-GN; 92610-GN; 97161-GP; 97165-GO; A9585; G8978-GP-CH; G8979-GP-CH; G8980-GP-CH; G8987-GO-CI; G8988-GO-CH; G8989-GO-CH; G8996-GN-CH; G8997-GN-CI; G8998-GN-CH; G9162-GN-CI; G9163-GN-CI; J0461; J2001; J2704

== ENCOUNTER → 2016-08-20 | Outpatient (CLI) | payer OTHER, MEDICARE ==
--- NOTE | 2016-08-20 11:32 | CPEEG ---
[f rep st] ELECTROENCEPHALOGRAM EEG DATE OF STUDY: 08/20/2016 DATE OF INTERPRETATION: 08/20/2016. INTERPRETATION: Normal EEG during wakefulness and sleep. There were no potentially epileptogenic a bnormalities present during the recording. REPORT: This EEG contains 10 Hz alpha activity to the posterior head regions. There was no abnorma l activation at rest, during photic stimulation, or hyperventilation. The patient became drowsy and fell asleep during the study. There was no abnormal activation during drowsiness, sleep, or during times of arousal. /[id number]/MODL
== END ==
LOC: FCPNEURO 08:52
PROVIDERS: ATTEND Psychiatry & Neurology Neurology
DX: F22 Delusional disorders (principal)

== ENCOUNTER → 2017-09-16 | Outpatient (CLI) | payer OTHER, MEDICARE | LOC: BHFA 14:15 | PROVIDERS: ATTEND Internal Medicine Cardiovascular Disease | DX: I25.10 Atherosclerotic heart disease of native coronary artery without angina pectoris (principal); I48.91 Unspecified atrial fibrillation ==

== ENCOUNTER → 2017-10-08 | Outpatient (CLI) | payer OTHER, MEDICARE | LOC: BHFA 09:15 | PROVIDERS: ATTEND Internal Medicine | DX: I48.91 Unspecified atrial fibrillation (principal); I25.10 Atherosclerotic heart disease of native coronary artery without angina pectoris ==